=== PATIENT | male | born 1975 | race Caucasian/White ===

== ENCOUNTER 2025-05-22 19:14 | Emergency (ER) | payer OTHER ==
[~2025-05-22] VITALS: Ht 175.3 cm; Wt 95.0 kg
[2025-05-22 19:31] VITALS: TEMP 36.7; O2SAT 98
[2025-05-22] MEDS ORDERED: TOPUD MT (22:20)
[2025-05-22 22:51] VITALS: BP 150/90; PULSE 82; RESP 16; O2SAT 98
== END 2025-05-22 23:10 | disposition home or self-care (01) ==
LOC: ER 19:14
DX: M79.671 Pain in right foot (principal); E11.9 Type 2 diabetes mellitus without complications; I10 Essential (primary) hypertension; Z88.1 Allergy status to other antibiotic agents
CPT/HCPCS: 73630; 99283